=== PATIENT | female | born 1960 | race Caucasian/White ===

== ENCOUNTER 2018-09-24 23:10 | Inpatient (IN) | payer OTHER ==
[~2018-09-24] VITALS: Ht 162.6 cm; Wt 88.9 kg
[2018-09-24 23:12] VITALS: BP 140/60
[2018-09-24 23:25] LABS: BE(vivo) 8.8 mmol/L (-2 to +3); HCO3 35.4 mmol/L (22.0-26.0); PCO2 56.4 mmHg (35.0-45.0); PO2 183.9 mmHg (80.0-100.0); pH 7.416 (7.360-7.450); sO2 99.3 % (92.0-98.0)
[2018-09-24 23:41] LABS: BASOPHILS 0.3 % (0.0-2.0); EOSINOPHILS 2.8 % (0.0-3.0); HEMATOCRIT 42.5 % (37.0-47.0); HEMOGLOBIN 13.7 gm/dL (12.0-15.0); LYMPHOCYTES 20.2 % (24.0-44.0); MCH 30.9 pg (26.0-34.0); MCHC 32.3 g/dL (28.0-37.0); MCV 95.7 fL (80.0-100.0); MONOCYTES 4.7 % (1.0-8.0); PLATELET COUNT 297 thou/uL (150-400); RBC 4.45 mil/uL (4.20-5.00); RDW 13.2 % (10.5-14.5); WBC 12.5 thou/uL (4.0-11.0)
[2018-09-24 23:49] LABS: CALCIUM 9.8 mg/dL (8.5-10.1); CREATININE 0.9 mg/dL (0.6-1.0)
[2018-09-24 23:51] LABS: POTASSIUM 2.9 mmol/L (3.5-5.1)
[2018-09-25] VITALS (7 sets, daily range): BP systolic 130–186; BP diastolic 51–97
[2018-09-25] MEDS ORDERED: NORVASC5 MG PO (04:33)
[2018-09-25] MEDS ORDERED: COZAAR 25 MG TA25 M2 PO (04:34)
[2018-09-25] MEDS ORDERED: LASIX 80 MG TAB80 MG PO (04:34)
[2018-09-25] MEDS ORDERED: NEURONTIN600 MG PO (04:34)
[2018-09-25] MEDS ORDERED: VENLAFAXINE HCL75 MG PO (04:35)
[2018-09-25] MEDS ORDERED: PERFOROMIS20 MCG/2 M IH (04:36)
[2018-09-25] MEDS ORDERED: YUPELRI175 MCG/3 (04:37)
[2018-09-25] MEDS ORDERED: MS CONTIN 30 MG30 MG PO (04:38)
[2018-09-25] MEDS ORDERED: MS CONTIN15 MG PO (04:38)
[2018-09-25] MEDS ORDERED: XANAX1 MG PO (04:39)
[2018-09-25] MEDS ORDERED: TESSALON PERLE100 MG PO (04:40)
[2018-09-25] MEDS ORDERED: INCRUSE ELLI62.5 MCG (04:40)
[2018-09-25] MEDS ORDERED: POTASSIUM20 PO (04:41)
--- NOTE | 2018-09-25 05:45 | NUR ---
PT WAS PACKAGING INSPECTOR ADMIT FROM ER. PT WAS HERE RECENTLY AT [facility]. RECORDS WILL NEED TO BE MERGED TO SHOW HER OTHER VISITS. COMPLETED ADMISSION AND THE PT HOME MED REC IS DONE. PT HAS CHRONIC PAIN IN THE KNEES BUT SHE SAID SHE IS NOT A CANDIDATE DUE TO POOR HEALTH. FOLLOWING PTS LABS POTASSIUM WAS CRITICAL LOW. WILL CONTINUE TO ROUND.
--- NOTE | 2018-09-25 13:36 | EKG ---
[address] [place] [address] ELECTROCARDIOGRAM REPORT Name: BERNARD DAVE Room #: 357-P ADM IN M.R.#: [id number] ������������������ Admission: 09/25/18 ������������������ Attend Phys: Timothy Calixto MD Discharge: ������������������ Date of : 58 Report #: [id number] ����������������������������������������������������������������� [id number] THIS REPORT FOR: //name// [facility] ED Test Date: 2018-09-24 Test Time: 23:41:22 Pat Name: BERNARD DAVE Department: Room: 357 Gender: F Investigative Writer: taurus : 1960 Requested By: Belen Morocho Order Number: [id number] MD: Matias Carmichael Measurements Intervals [place] Rate: 84 P: 83 [place]: 163 QRS: 212 QRSD: 95 T: 197 QT: 432 QTc: 511 Interpretive Statements Sinus rhythm Poor R wave progression Nonspecific ST and T wave abnormality Prolonged QT interval No previous ECG available for comparison Electronically Signed On 09-25-2018 13:36:17 CDT by Matias Carmichael [email or web address] ��������������������������������������������� <ELECTRONICALLY SIGNED> ���������������������������������������� By: Matias Carmichael MD, [facility] ��������������������������������������������� 09/25/18 1336 [id number] Matias Carmichael MD, FACC /EPI
--- NOTE | 2018-09-25 16:18 | NUR ---
PT IS IN BED EATING SNACK. ALERT XS 4. HAS NON PROD COUGH. LUNGS COARSE, O2 AT 4L/NC. SKIN HAS BRUISING NO OPEN AREAS. BOWEL SOUNDS POSITIVE. PLEASANT AND COOPERATIVE WITH CARE. PULMONARY DOCTOR HERE TO SEE PATIENT.
[2018-09-26 00:05] LABS: GLYCOHEMOGLOBIN (HGB A1C) 5.3 % (4.8-5.6)
--- NOTE | 2018-09-26 05:19 | NUR ---
RESUMED CARE FOR PT. PT SLEPT ALL SHIFT, LESS MEDICATION PASS. 2100 PT WAS SOMEWHAT DEFENSIVE/ARGUEMENTIVE ABOUT PAIN MEDICATIONS. PT WAS QUESTIONING WHY SHE WAS NOT GOING TO RECEIVE ANYMORE DOSES THIS EVENING. EDUCATED PT ON WHEN HER MEDS WERE GIVEN AND HOW THEY WERE SCHEDULED. PT STATES I NEED MY PAIN MEDICATION EARLY IN THE MORNING TO GET MY DAY STARTED WITHOUT PAIN. PT HAD NO OTHER COMPLAINTS OF N/V. HOURLY ROUNDING.
[2018-09-26 05:23] LABS: HEMATOCRIT 38.1 % (37.0-47.0); HEMOGLOBIN 12.3 gm/dL (12.0-15.0); MCH 30.7 pg (26.0-34.0); MCHC 32.3 g/dL (28.0-37.0); MCV 95.2 fL (80.0-100.0); RDW 13.4 % (10.5-14.5)
[2018-09-26 05:38] LABS: CALCIUM 9.8 mg/dL (8.5-10.1); CREATININE 1.1 mg/dL (0.6-1.0)
[2018-09-26 05:43] LABS: POTASSIUM 4.7 mmol/L (3.5-5.1)
[2018-09-26 07:21] VITALS: BP 129/60
--- NOTE | 2018-09-26 10:27 | NUR ---
INITIAL ASSESSMENT: Pt evaluated for d/c planning needs. Reviewed chart and spoke with nurse and pt. Pt is alert and oriented. Pt lives in house with adult blind son. Pt said she has walker, cane, oxygen ([employer]) and nebulizer at home. Pt is no longer able to drive and has groceries delivered from [employer]. Pt is receiving Social Security disability and has [facility] Medicare insurance. Pt has had Medicaid in the past, but had a large spenddown. Pt plans on returning home on d/c from hospital. Will remain available to assist as needed.
[2018-09-26 11:30] VITALS: BP 122/61
--- NOTE | 2018-09-26 13:32 | NUR ---
ALERT, ORIENTED, COOPERATIVE, SLIGHT INTERMITTENT TREMORS, SR. RN ENCOURAGING DEEP BREATHS/COUGH WITH MOIST NONPRODUCTIVE COUGH, LUNGS WITH COARSE WHEEZING THROUGHOUT AND RESP TXMENTS INCREASING COARSE WHEEZING, TOLERATING DIET, AMBULATES TO BATHROOM WITH ASSIST. PER PT REQUEST ALPRAZOLAM GIVEN FOR ANXIETY, ANXIOUSNESS.
--- NOTE | 2018-09-26 14:35 | NUR ---
FAXED FACE SHEET TO [employer] FOR HELP WITH MEDICAID APPLICATION.
[2018-09-26 16:34] VITALS: BP 121/59
--- NOTE | 2018-09-26 19:15 | NUR ---
rested well during afternoon. consuming evening meal, pt coughing and unable to get the coughing to resolve. when pt sitting upright on bedside commode, coughing resolved. when returned to bed even though sitting upright in bed, pt started coughing again. thickened liquid resolved the cough and soothed her throat. resp txment just given per resp therapy. report given to MADISON Freitas.
[2018-09-26 20:10] VITALS: BP 130/60
[2018-09-27 04:30] VITALS: BP 125/63
[2018-09-27 07:13] VITALS: BP 113/53
--- NOTE | 2018-09-27 07:38 | NUR ---
PATIENT IS ALERT AND ORIENTED. PATIENT IS ON 3L NC (WHICH IS BASE LINE) PAITNET CAN BE ANXIOUS AT TIMES. PATIENT GETS SOB WITH ACTIVITY. PATIENTS PAIN IS TREATED WITH PAIN MEDICATION. PATIENT LBM. WAS THE 27TH. PAITNET HAS TREMORS. PAITNET IS NSR ON TELE. PATINET IS ACHS FOR STEROIDS. PAITNET HAS EDEMA TO LOWER EXTREAMITY. PAITNETS LEGS ARE ELEVATED. PATIENT IS RESTING COMFORTABLY IN BED. WCM. PATIENT IS PROGRESSING TO GOALS.
[2018-09-27 11:44] VITALS: BP 122/54
[2018-09-27 16:08] VITALS: BP 121/59
[2018-09-27 17:01] LABS: BE(vivo) 1.8 mmol/L (-2 to +3); HCO3 29.3 mmol/L (22.0-26.0); PCO2 58.4 mmHg (35.0-45.0); PO2 81.5 mmHg (80.0-100.0); pH 7.318 (7.360-7.450); sO2 94.9 % (92.0-98.0)
--- NOTE | 2018-09-27 18:01 | NUR ---
PATIENT HAS BEEN QUITE SLEEPY TODAY. SHE IS ALERT ORIENTED X4. DOES NOT SEEM TO BE IN PAIN AT THIS TIME. PLEASANT WITH CARE. RESPIRATIONS ARE LABORED WITH RESPIRATIONS. WILL CONT WITH PLAN OF CARE.
[2018-09-27 20:25] VITALS: BP 130/67
[2018-09-28 04:10] VITALS: BP 126/59
[2018-09-28 05:27] LABS: BASOPHILS 0.1 % (0.0-2.0); HEMATOCRIT 37.8 % (37.0-47.0); HEMOGLOBIN 12.2 gm/dL (12.0-15.0); MCH 30.4 pg (26.0-34.0); MCHC 32.2 g/dL (28.0-37.0); MCV 94.5 fL (80.0-100.0); MONOCYTES 2.4 % (1.0-8.0); PLATELET COUNT 275 thou/uL (150-400); POLYS 92.5 % (36.0-66.0); RDW 13.7 % (10.5-14.5)
[2018-09-28 05:47] LABS: CALCIUM 9.2 mg/dL (8.5-10.1); CREATININE 1.3 mg/dL (0.6-1.0); MAGNESIUM 2.2 mg/dL (1.8-2.4); POTASSIUM 5.5 mmol/L (3.5-5.1)
--- NOTE | 2018-09-28 06:13 | NUR ---
PATIENT IS PROGRESSING IN HER CARE PLAN. VITAL SIGNS STABLE WITH PATIENT HAVING NO COMPLAINTS OF NAUSEA. PATIENT DID COMPLAIN OF CHRONIC PAIN WHICH WAS TREATED EFFECTIVELY WITH SCHEDULED PAIN MEDICATION. FULLY ORIENTED, PATIENT IS ABLE TO CALL APPROPRIATELY FOR NEEDS AND PARTICIPATE IN PLAN OF CARE. BREATHING STABLE ON BIPAP/OXYGEN EVIDENCED BY READINGS ON CONTINUOUS SATURATION MONITOR. PATIENT WAS ABLE TO TOLERATE BIPAP FOR LARGE PORTION OF SHIFT. UP MULTIPLE TIMES TO BEDSIDE COMMODE WITH ASSISTANCE INCIDENT FREE, PATIENT IS CONSIDERED A HIGH FALL RISK. CONTINUE PLAN OF CARE.
[2018-09-28 07:23] VITALS: BP 130/62
[2018-09-28 12:05] VITALS: BP 134/59
--- NOTE | 2018-09-28 14:52 | NUR ---
SW reviewed chart and spoke with nursing and attending physician. Pt is slowly progressing towards goals for discharge. SW met with pt at bedside to discuss discharge plan. Pt states she feels weak. SW offered to have PT evaluation ordered and discussed HH services. Options provided. Pt has used [facility] in the past, and would like to use them again. Pt's PCP is Dr. Wendi Castañeda. SW notified intake at [facility] of new referral. Plan is for pt to discharge home with [facility] HH when medically stable. TRISTAN is following to assist as needed with discharge planning.
[2018-09-28 16:35] VITALS: BP 124/49
--- NOTE | 2018-09-28 16:52 | NUR ---
ASSUMED CARE AT SHIFT CHANGE, ALERT AND ORINETED X4. PROGRESSING TOWARDS POC GOALS, VSS AND SR ON THE MONITOR. BG COVERED WITH ISS. AND WILL CONTINUE WITH POC.
[2018-09-28 19:02] VITALS: BP 115/56
[2018-09-28 21:06] LABS: ADENOVIRUS Negative (Negative); INFLUENZA A Negative (Negative); INFLUENZA B Negative (Negative); METAPNEUMOVIRUS Negative (Negative); PARAINFLUENZA 1 Negative (Negative); PARAINFLUENZA 2 Negative (Negative); PARAINFLUENZA 3 Negative (Negative); RHINOVIRUS Negative (Negative); RSV A Negative (Negative); RSV B Negative (Negative)
[2018-09-29 03:51] VITALS: BP 130/55
--- NOTE | 2018-09-29 05:58 | NUR ---
PT WAS WILLING TO TAKE A SHOWER THIS EVENING. DID COMPLETE BED CHANGE. FOLLOWING POC WITH [employer]AL [employer]TIBIOTICS. BIPAP WAS RESUMED AT 2330 AND PT HAS BEEN RESTING COMFORTABLY SINCE WITH OXYGEN SATS AT 99%. PT STATES NO N/V ONLY THE DIFFICULTY IN BREATHING. PT DESIRES LARGE AMOUNTS OF SNACKS AND SODA. HOURLY ROUNDING.
[2018-09-29 07:11] VITALS: BP 144/66
[2018-09-29 08:07] LABS: HEMATOCRIT 40.3 % (37.0-47.0); HEMOGLOBIN 13.4 gm/dL (12.0-15.0); MCHC 33.2 g/dL (28.0-37.0); MCV 93.6 fL (80.0-100.0); PLATELET COUNT 304 thou/uL (150-400); RBC 4.31 mil/uL (4.20-5.00); RDW 13.4 % (10.5-14.5); WBC 12.6 thou/uL (4.0-11.0)
[2018-09-29 08:17] LABS: CALCIUM 9.5 mg/dL (8.5-10.1); CREATININE 1.2 mg/dL (0.6-1.0); MAGNESIUM 2.5 mg/dL (1.8-2.4); POTASSIUM 4.5 mmol/L (3.5-5.1)
[2018-09-29 09:33] LABS: ABSOLUTE NEUTROPHILS 11.5 thou/uL (1.4-8.2); PLATELET ESTIMATE NORMAL
[2018-09-29 11:05] VITALS: BP 112/52
[2018-09-29] MEDS ORDERED: NICOTINE1 EAC2 TRANSDERM (11:24)
[2018-09-29] MEDS ORDERED: AZITHROMYCIN 2250 MG PO (11:24)
[2018-09-29] MEDS ORDERED: PREDNISONE 20 M20 M1 PO (11:24)
[2018-09-29] MEDS ORDERED: CEFUROXIME500 MG PO (11:24)
[2018-09-29] MEDS ORDERED: MUCINEX600 MG PO (11:24)
[2018-09-29] MEDS ORDERED: IPRAT-ALBUT 0.5-3 ML INH (11:24)
--- NOTE | 2018-09-29 13:25 | NUR ---
DISCHARGE ORDERS RECEIVED. PATIENT DISCHARGING TO HOME, IN NEED OF TRANSPORTATION WITH OXYGEN. [facility] TO TRANPORT PATIENT, 1430 HOURS. UNIT RN NOTIFIED OF TIME. UNIT CM/SW AWARE.
[2018-09-29 14:03] VITALS: BP 112/52
--- NOTE | 2018-09-29 14:26 | NUR ---
ASSUMED PATIENT CARE AT 0700. A/O X4. PAIN MEDS GIVEN NEEDS. AMBULATED IN HALLWAY. PROGRESSING TOWARDS POC GOALS. DC TO HOME NOW.
--- NOTE | 2018-09-29 14:46 | NUR ---
DISCHARGE NOTE: SW reviewed chart and spoke with nursing and attending physician. Pt is medically stable for discharge home today with services. SW met with pt at bedside to discuss discharge plan. Pt is aware and agreeable with plan. Patient Choice Vendor Letter signed and placed on pt's chart. Pt needing transportation home. Director of Case Mgmt approved w/c van transportation home, as pt needs O2 en route. SW confirmed pt's home address and phone number. SW notified intake at [facility] of discharge orders. Contact info for [facility] placed in pt's discharge summary. environmental restoration planner coordinated w/c van transportation. No additional SW needs identified at this time, but is available to assist should needs arise.
--- NOTE | 2018-10-03 18:24 | HC ---
[facility] [place] [address] [address] CONSULTATION Name: BERNARD DAVE Room #: 357-[facility] IN ..#: [id number] Admission: 09/25/18 ������������������ Attend Phys: Ronni Thorne MD Discharge: 09/29/18 ������������������ Date of : 58 Report #: [id number] THIS REPORT FOR: //name// CC: Ronni Nettles REFERRING PHYSICIAN: Timothy Calixto M.D. REASON FOR REFERRAL: COPD, exacerbation. HISTORY OF PRESENT ILLNESS: The patient is a 57-year-old white female with known COPD, presents to the ED with progressive dyspnea. Pulmonary consultation was requested. The patient has been followed longitudinally in the pulmonary office. She normally sees Dr. Arnold. The patient was last hospitalized in May of this year for COPD exacerbation. The patient is chronically on 3 liters of O2. She unfortunately continues to smoke. Otherwise, she denies any febrile illness, sore throat, productive cough, hemoptysis. Recent PFTs from 06/30/2018 showed FEV1 of 0.5 liters or 21% predicted. She normally uses nebulized budesonide, Perforomist, nebulized albuterol. PAST MEDICAL HISTORY: As mentioned above, sleep apnea on auto CPAP between and 15 cm H2O, COPD as mentioned above, diabetes mellitus type 2, hypertension, history of depression, hypertension, coronary artery disease with acute ischemic cardiomyopathy, history of Takotsubo cardiomyopathy. PAST SURGICAL HISTORY: Noncontributory. ALLERGIES: WELLBUTRIN, REACTION NOT SPECIFIED. HOME MEDICATIONS: List reviewed and as mentioned above. FAMILY HISTORY: Noncontributory. SOCIAL HISTORY: Tobacco use as mentioned above, she continues to smoke half a pack a day. She denies any alcohol use. REVIEW OF SYSTEMS: As mentioned above, otherwise 10-point system review negative. PHYSICAL EXAMINATION: [facility] [address] [place] [address] CONSULTATION Name: BERNARD DAVE Room #: 357-P [facility] IN [facility]#: [id number] Admission: 09/25/18 ������������������ Attend Phys: Ronni Thorne MD Discharge: 09/29/18 ������������������ Date of : 58 Report #: [id number] GENERAL: She is awake, alert, in mild distress. She appears mildly dyspneic. VITAL SIGNS: Temperature is 98 degrees Fahrenheit, pulse is 80, respiratory rate is 20, blood pressure 156/87 mmHg, saturations 97%. HEENT: Normocephalic, atraumatic. NECK: Supple without lymphadenopathy or thyromegaly. CHEST: Breath sounds are decreased bilaterally with mild bilateral wheezes. CARDIOVASCULAR: Normal S1, S2. No murmurs or gallop. There is no JVD. There is no carotid bruit. Pulses are 2+/4+ bilaterally. ABDOMEN: Soft, nontender, no organomegaly or masses felt. GENITOURINARY: Deferred. RECTAL: Deferred. EXTREMITIES: There is no edema, cyanosis or clubbing. LABORATORY DATA: Chest x-ray is clear. Leg Doppler ultrasound was negative for DVT. EKG shows poor R-wave progression, normal sinus rhythm. Electrolytes are normal except for potassium 2.9. WBC 12,500; hemoglobin is normal; platelets are normal. Arterial blood gas revealed pH 7.41, pCO2 of 56, pO2 of 183 on 50% FiO2. IMPRESSION: 1. Qwubb-fr-dehvicg hypercapnic hypoxic respiratory failure due to exacerbation of chronic obstructive pulmonary disease, etiology due to ongoing tobacco use, possible respiratory tract infection. 2. Chronic obstructive pulmonary disease, very severe impairment, exacerbation. 3. Obstructive sleep apnea, on auto CPAP between and 15 cm H2O. 4. Chronic respiratory failure, the patient normally on 3-4 liters of O2. 5. Coronary artery disease, ischemic cardiomyopathy. 6. Tobacco abuse. 7. Diabetes mellitus type 2. 8. Hypertension. RECOMMENDATIONS: Agree with corticosteroids, bronchodilators, broad-spectrum antibiotics. Strongly recommend smoking cessation. DVT and GI prophylaxis recommended. Thank you for this consultation. ��������������������������������������������� <ELECTRONICALLY SIGNED> ���������������������������������������� By: Taye Mckeon MD ��������������������������������������������� 10/03/18 1824 [id number] Taye Mckeon MD /nt
== END 2018-09-29 14:35 | disposition home health service (06) | DRG 189 ==
LOC: ER 23:10 → 3W 09-25 03:14 → EROBS 09-25 03:14 → 3W 09-25 03:27 → 3N 09-25 03:52 → 3W 09-25 03:57
PROVIDERS: Emergency Medicine; Internal Medicine; Nurse Practitioner Acute Care; ADMIT Hospitalist
PROC: 5A09357 Assistance with Respiratory Ventilation, Less than 24 Consecutive Hours, Continuous Positive Airway Pressure (ICD-10-PCS; principal; 2018-09-27)
PROC: 5A09357 Assistance with Respiratory Ventilation, Less than 24 Consecutive Hours, Continuous Positive Airway Pressure (ICD-10-PCS; 2018-09-28)
PROC: 5A09357 Assistance with Respiratory Ventilation, Less than 24 Consecutive Hours, Continuous Positive Airway Pressure (ICD-10-PCS; 2018-09-29)
DX: J96.21 Acute and chronic respiratory failure with hypoxia (principal); J44.1 Chronic obstructive pulmonary disease with (acute) exacerbation; J96.22 Acute and chronic respiratory failure with hypercapnia; E11.9 Type 2 diabetes mellitus without complications; F32.9 Major depressive disorder, single episode, unspecified; I25.10 Atherosclerotic heart disease of native coronary artery without angina pectoris; I25.5 Ischemic cardiomyopathy; G47.33 Obstructive sleep apnea (adult) (pediatric); M19.90 Unspecified osteoarthritis, unspecified site; I11.0 Hypertensive heart disease with heart failure; I50.9 Heart failure, unspecified; F17.210 Nicotine dependence, cigarettes, uncomplicated; E87.6 Hypokalemia; E66.9 Obesity, unspecified; Z68.33 Body mass index [BMI] 33.0-33.9, adult; G89.4 Chronic pain syndrome; F41.1 Generalized anxiety disorder; Z88.8 Allergy status to other drugs, medicaments and biological substances; Z82.49 Family history of ischemic heart disease and other diseases of the circulatory system; Z80.1 Family history of malignant neoplasm of trachea, bronchus and lung; Z83.6 Family history of other diseases of the respiratory system; Z79.891 Long term (current) use of opiate analgesic; Z71.6 Tobacco abuse counseling
CPT/HCPCS: 10879